=== PATIENT | female | born 1965 ===

== ENCOUNTER 2018-11-27 00:13 | Observation (INO) | payer OTHER ==
[2018-11-27] VITALS (16 sets, daily range): BP systolic 104–144; BP diastolic 59–97
[~2018-11-27] VITALS: Ht 162.6 cm; Wt 100.7 kg
[2018-11-27] MEDS ORDERED: FAMOTIDINE 20 MG TAB PO ONE (06:15)
[2018-11-27] MEDS ORDERED: LIDOCAINE/SOD BICARB 8.4% SYR ID ONE (06:15)
[2018-11-27] MEDS ORDERED: CELECOXIB 200 MG CAP PO ONE (06:15)
[2018-11-27] MEDS ORDERED: ACETAMINOPHEN 500 MG TAB PO ONE (06:15)
[2018-11-27] MEDS ORDERED: PREGABALIN 150 MG CAPSULE PO ONE (06:15)
[2018-11-27] MEDS ORDERED: ROPIVACAINE 0.2% 400 MG/200ML 250 ML CONINFUS ONE (06:15)
[2018-11-27] MEDS ORDERED: NORMOSOL R SOLN(*) 1000 ML BAG 1,000 ML IV PRN (06:15)
[2018-11-27] MEDS ORDERED: ceFAZolin(*) 2GM/D5W 50ML 50 ML IVPB ONE (06:15)
[2018-11-27] MEDS ORDERED: MIDAZOLAM 2 MG/2 ML VIAL IVP PRN (06:15)
[2018-11-27] MEDS ORDERED: KETAMINE HCL-NS 50 MG/5 ML SYR ONE (06:53)
[2018-11-27] MEDS ORDERED: fentaNYL CITR 100 MCG/2 ML AMP ONE ×5 (06:53→11:10)
[2018-11-27] MEDS ORDERED: ETOMIDATE 20 MG/10 ML VIAL ONE (06:53)
[2018-11-27] MEDS ORDERED: ONDANSETRON 4 MG/2 ML VIAL ONE (06:53)
[2018-11-27] MEDS ORDERED: DEXAMETHASONE SOD PHOS 10MG/ML ONE (06:53)
[2018-11-27] MEDS ORDERED: LIDOCAINE MPF 1% 5 ML VIAL ONE (06:53)
[2018-11-27] MEDS ORDERED: ROPIVACAINE 0.5% 20 ML VIAL ONE (06:56)
[2018-11-27] MEDS ORDERED: ROPIVACAINE 0.2% 20 ML VIAL ONE (06:56)
[2018-11-27] MEDS ORDERED: EPINEPHrine HCL 1 MG/ML AMP ONE (07:03)
--- NOTE | 2018-11-27 11:06 | OPERATIVE REPORT 1 ---
EVENT DATE: November 27, 2018 SURGEON: Berny Reid MD ANESTHESIOLOGIST: Howie Crisostomo MD ANESTHESIA: adjunct spanish instructor: Hung Burnette PA-C PREOPERATIVE DIAGNOSIS Moderate to severe ankle arthritis. POSTOPERATIVE DIAGNOSIS Severe ankle arthritis. PROCEDURE PERFORMED Left total ankle replacement. ESTIMATED BLOOD LOSS Minimal. FLUIDS Minimal. TOURNIQUET TIME 2 hours. DESCRIPTION OF PROCEDURE The patient was brought to the operating room and placed in the supine position and a bump placed under the left hip to realign the left lower extremity. He was prepped and draped in normal sterile fashion using Prevail. Sterile stockinettes and U-drape were placed on the lower extremity. Stockinette was rolled up, held with Coban. Esmarch was then used to exsanguinate the lower extremity and tourniquet turned up to 300 mmHg. At this point, we made a midline incision right just lateral to the anterior tibialis tendon. Skin incised with #15 blade, dissected through the skin and subcutaneous tissue, bluntly dissected down. We were able to identify the neurovascular bundle, which was pushed off laterally. I did sharp dissection down to the periosteum. Periosteal dissection was then done both medially and laterally around the ankle joint. At this point, we found significant arthritis in the ankle. There was almost no ankle left and there was very large anterior spurring. I used an osteotome to remove the anterior spurs on the tibia. I used a rongeur to remove the spurs on the talus anteriorly. At this point, I made an incision directly over the tibial tubercle. Skin incised with #15 blade down to subcutaneous tissue and subcutaneous tissue bluntly dissected down to the bone. The drill was then used and large pin was then placed into the tibial tubercle. We placed the alignment guide proximal, alignment guide attached to the pin and the tibia tubercle, bringing it down, bringing it right where the tibial plafond was. At this point, I placed a medial pin in the distal portion of the alignment guide, holding it in alignment. At this point, we then brought it up 8 mm, brought fluoroscopy in to see if we had enough cut on the distal tibia, which we did not. We went up 2 more millimeters to make a full cut of 10 mm. When we had the alignment correct, both looking varus/valgus, AP and lateral. We then did our sizing and found that this actually a 0 total ankle both on AP and lateral. At this point, we placed a 0 tibial cutting guide on, brought fluoroscopy in, made sure we had the medial gutter appropriately placed, pinned the cutting guide, 3 on the left, 3 on the right of the cutting guide and then placed 3 pins in each one of them. Once that was done, then we made our transection of the distal tibia using an oscillating saw. We were able to remove the tibial guide, remove the pins. I used an osteotome to finish both the medial and lateral gutters of the tibial cut. At this point, we tried to remove the distal bone. It was very hard. We removed about 3/4 of it, leaving the last posterior portion to remove after we removed the talus. We then decided to make our talar cut off the tibial guide. We then placed our talar pin, aligning it, bringing fluoroscopy in, looking at a lateral and making sure the pin was in the posterior facet portion, which we felt we had good alignment of it. Once that was in the correct position, we then brought in our talar cutting guide with two paddles that went into the ankle joint. We placed lamina spreaders to hold them in place. I brought fluoroscopy in to make sure the paddles were down evenly and the alignment looked correct, which it did. We then placed 4 pins through the guide. One of the pins on the lateral side was actually not in the bone. Therefore, understanding that the 0 cutting guide that we had for the talus was probably the appropriate size. We removed the guide. We then used the pins as our guide to make the distal tibia. I was able to cut the top of the talus off just using the guide of the pins without any difficulty. We removed the talus. At this point, we removed the pins from the talar cut. I was able to go in the posterior aspect of the ankle and remove the rest of the tibial bone that was present. Once that was done, we then made our anterior chamfer. We placed the anterior chamfer guide. I had to remove actually a little more of the talar neck to get the chamfer guide in the right position. We checked on fluoroscopy. Once we had the right position, we then pinned it, made our anterior chamfer using the drill on both sides. I was able to remove the anterior chamfer and then use a rongeur to finish the anterior chamfer. At this point, we then placed our lateral chamfer guide on and were able to, with fluoroscopy and the distal tibial guide, align it in the right position. Once we had it in the right position, with rotation in the appropriate position, going right to the second ray, we were able to pin the lateral talar cutting guide. We then made our lateral chamfer without any difficulty and drilled the center hole where the tibial center stem would sit. We then removed that, placed the trial of an 0 talus and 0 tibia and without any difficulty had excellent alignment. We did have to move the tibia slightly anterior but that was very minor. Once we had that in the right position and we had the distal tibia in the right position, we brought fluoroscopy in, AP and latera, found to have excellent alignment of the tibia and the talus. We then removed that. We then did a tendo-Achilles lengthening, 3 percutaneous folds in the back of the Achilles, one medial, one lateral and one medial. At this point, we placed the guides back in. I was able to actually get good tension with a 9 mm poly. Therefore, we went for a final implantation of the Integra [place] total ankle talus with a 0 both tibia and talus and a 9 mm poly. Those were placed without any difficulty. Brought fluoroscopy in with final x-rays. We then had excellent range of motion after the Achilles tendon lengthening. I had about 20 degrees of dorsiflexion and 40 degrees of plantar flexion. We closed the retinaculum using 2-0 Vicryl and then closed the skin using 3-0 and 4-0 Monocryl in a subcuticular manner with the Dermabond placement on the skin. Adaptic, 4 x 4's, big bulky Nation dressing. The patient went to recovery. No complications. KEVIN
[2018-11-27] MEDS ORDERED: FLUSH 10 ML SYR IVP PRN (11:40)
[2018-11-27] MEDS ORDERED: PROMETHAZINE 25 MG/ML 1 ML AMP IVP PRN (11:40)
[2018-11-27] MEDS ORDERED: MAGNESIUM CITRATE 300 ML BTL PO PRN (11:40)
[2018-11-27] MEDS ORDERED: diphenhydrAMINE 25 MG CAP PO PRN (11:40)
[2018-11-27] MEDS ORDERED: ONDANSETRON 4 MG/2 ML VIAL IVP PRN (11:40)
[2018-11-27] MEDS ORDERED: MAGNESIUM HYDROXIDE* 30ML UDCP PO PRN (11:40)
[2018-11-27] MEDS ORDERED: KCL/D5LR 20 MEQ/1000 ML PREMIX 1,000 ML IV PRN (11:40)
[2018-11-27] MEDS ORDERED: BISACODYL 10 MG SUPP PR PRN (11:40)
[2018-11-27] MEDS ORDERED: ACETAMINOPHEN 500 MG TAB PO PRN (11:40)
[2018-11-27] MEDS ORDERED: KETOROLAC 30 MG/ML VIAL IVP PRN (11:40)
[2018-11-27] MEDS ORDERED: LIDO/EPI 2% MDV 1:100,000 20ML INFIL ONE (11:58)
[2018-11-27] MEDS ORDERED: HYDROmorphone HCL 2 MG/ML SDV ONE (12:00)
--- NOTE | 2018-11-27 12:01 | RADIOLOGY IMAGING REPORT ---
FACILITY: [facility] - [place] PATIENT NAME: Patience Leonard : 1965 MR: [id number] V: [id number] EXAM DATE: ORDERING PHYSICIAN: LIZ SHAFFER TECHNOLOGIST: Location: [facility] [place] Patient: Patience Leonard : 1965 Visit/Account:[id number] Date of Sevice: 11/27/2018 C-ARM FLUORO 1 HR Indication: L ankle arthroplasty Comparison: None. Findings: Intraoperative images are available from a left ankle arthroplasty. Hardware appears in go od position. IMPRESSION: Intraoperative images from left ankle arthroplasty. Radiation dose: DAP 0.5823 Gycm2; AK 2.9265 mGy Report Dictated By: Compa Mccain at 11/27/2018 11:46 AM Report E-Signed By: Compa Mccain at 11/27/2018 11:47 AM WSN:[email or web address]
[2018-11-27] MEDS ORDERED: METOCLOPRAMIDE 10 MG/2 ML SDV ONE (12:15)
--- NOTE | 2018-11-27 14:16 | Hospitalist Consultation ---
History of Present Illness Requesting Physician Dr. Reid Reason for Consult Medical Management Chief Complaint s/p left ankle replacement History of Present Illness She was admitted s/p left ankle replacement. It is reported the surgery went well and without complication. History Home Meds No Active Prescriptions or Reported Meds Allergies: Uncoded Allergies: MULIPLE FOOD ALLERGIES (Allergy, Severe, 11/20/18) Hx Smoking: Yes (SOCIAL SMOKER FOR 5 YEARS ) Smoking Status: Former Smoker When Quit Tobacco?: 1990 Caffeine Intake: Coffee Caffeine/Cups Per Day: 2/DAY Hx Alcohol Use: Yes Alcohol Used: Wine Hx Substance Use Disorder: No Social Drug Use: Never History of IV Drug Use: No Review of Systems All Systems Reviewed/Normal: Yes, Except as Noted Constitutional: Other (sleeping throughout exam) Exam Vital Signs Vital Signs Date Time Temp Pulse Resp B/P (MAP) Pulse Ox O2 Delivery O2 Flow Rate FiO2 11/27/18 13:40 87 11/27/18 13:40 98.4 77 16 134/81 (98) Nasal Cannula 2.0 General Appearance: No Acute Distress Cardiovascular: Regular Rate and Rhythm Respiratory: No Respiratory Distress, Clear to Auscultation Psych: Other (sleeping throughout exam) Assessment and Plan Problems: (1) Status post left ankle joint replacement Status: Acute Assessment & Plan: Followed by Dr. Reid. Hospitalist service will follow along for any medical needs. The patient has no PMH or Medications daily. Venous Thromboembolism Antithrombotics Is Pt On Any Antithrombotics?: No Exam Sepsis Risk: No Definite Risk ARTEMIO FONG LEAD RADIOLOGIC TECHNOLOGIST November 27, 2018 14:16
--- NOTE | 2018-11-27 15:41 | NUR ---
Physical Therapy Impression Attempted to see Pt, Pt sleeping and per nursing has received much pain medication making her very drowsy. Will attempt gait training NWB L LE tomorrow when Pt is more alert and able to safely mobilize. Physical Therapy Goals Patient's Goals
[2018-11-27] MEDS: ceFAZolin(*) 1 GM VIAL 1 GM in NS(*) 0.9% 100 ML MINI-BAG 100 ML IVPB SCH (15:46)
[2018-11-27] MEDS: oxyCODON/ACET (*)5/325MG (CII) 1 TAB TAB PO PRN (21:01)
[2018-11-28] MEDS: ceFAZolin(*) 1 GM VIAL 1 GM in NS(*) 0.9% 100 ML MINI-BAG 100 ML IVPB SCH ×2 (00:33→08:05)
[2018-11-28] MEDS: oxyCODON/ACET (*)5/325MG (CII) 1 TAB TAB PO PRN ×2 (02:39→08:05)
[2018-11-28 02:57] VITALS: BP 125/78
[2018-11-28] MEDS ORDERED: SUCCINYLCHOL CHL 100MG/5ML SYR IVP ONE (07:47)
--- NOTE | 2018-11-28 07:54 | Hospitalist Progress Note ---
Subjective Progress Notes Subjective 53F admitted after ankle surgery. STALIN overnight doing well this am. Physical Exam Vital Signs Date Time Temp Pulse Resp B/P (MAP) Pulse Ox O2 Delivery O2 Flow Rate FiO2 11/28/18 02:57 98.5 57 18 125/78 (94) 97 Nasal Cannula 0.5 Intake and Output 11/28/18 07:00 Intake Total 2760 ml Balance 2760 ml Intake Oral 480 ml IV Total 2280 ml # Voids 2 General Appearance: Alert, Awake, No Acute Distress Cardiovascular: Normal Rhythm & Peripheral Pulses Respiratory: No Respiratory Distress Extremities: Soft and Non Tender, Warm, Pulses Assessment and Plan Problems: (1) Status post left ankle joint replacement Status: Acute Assessment & Plan: Followed by Dr. Reid. Hospitalist service will follow along for any medical needs. Medically stable for discharge at ortho discretion. Exam Sepsis Risk: No Definite Risk JHON MONTANEZ DO November 28, 2018 07:54
[2018-11-28] MEDS ORDERED: diphenhydrAMINE 25 MG CAP PO PRN (09:15)
--- NOTE | 2018-11-28 09:50 | DISCHARGE SUMMARY ---
PREOPERATIVE DIAGNOSIS Severe degenerative arthrosis of the ankle on the left. POSTOPERATIVE DIAGNOSIS Severe degenerative arthrosis of the ankle on the left. PROCEDURE Total ankle replacement. HOSPITAL COURSE The patient underwent a total ankle replacement and postoperative day #1 was doing extremely well and had zero pain. The block was working well. She had taken a little bit of pain medication, but it was minimal. She has actually gotten up twice yesterday to go to the bathroom and once this morning with very little difficulty, maneuvering the walker. She is tolerating oral pain medications. She will be discharged home today, non-weight bearing, follow up 2 weeks in our [facility] and she is to remain non-weight bearing for 8 weeks. She is to leave the dressing and splints on for 2 weeks until she sees me back. The patient was discharged home without any difficulty. KEVIN
[2018-11-28 10:42] VITALS: BP 128/67
--- NOTE | 2018-11-28 10:55 | NUR ---
Physical Therapy Impression Pt ambulated 15' to and from bathroom with RW, SBA. She adhered to NWB status. Pt educated on proper fit of RW as well as proper fit of scooter for use at home. Pt expresses confidence and ability to perform stairs at her home and has a walk out basement entrance she can use if necessary. Pt appropriate for d/c home with followup and OP therapy per MD in home [facility]. Physical Therapy Goals 1. Pt to perform bed mobility with Benji and SBA. 2. Pt to ambulate x15' with RW and SBA. 3. Pt to perform transfers with Benji and SBA. Patient's Goals
== END 2018-11-28 11:35 | disposition home or self-care (01) ==
LOC: OR 00:13 → MED 13:40
PROVIDERS: ADMIT Orthopaedic Surgery; ATTEND Orthopaedic Surgery
DX: M13.872 Other specified arthritis, left ankle and foot (principal)
CPT/HCPCS: 27702; 76000; 97116; 97162; C1776; G0378; J0171; J0330; J0690; J1100; J1170; J1885; J2001; J2250; J2405; J2765; J2795; J3010; J3480; J3490; Q0163